=== PATIENT | male | born 1950 | race Caucasian/White ===

== ENCOUNTER → 2021-02-28 | Outpatient (CLI) | payer OTHER ==
--- NOTE | 2021-02-28 12:20 | RAD ---
EXAM: XR KNEE _3 VIEWS_LT 02/28/2021 10:54 AM CLINICAL INDICATION: Need COMPARISON: None TECHNIQUE: 3 views of the left knee FINDINGS: There is moderate medial compartment narrowing with mild subchondral sclerosis and small o steophytes. There is a 6 x 2 mm subchondral lucency in the medial femoral condyle. Mild lateral prashant rtment narrowing. Likely at least moderate patellofemoral compartment narrowing. There are small tric ompartment osteophytes. Chondrocalcinosis is seen in the medial and lateral compartment, and in the g astrocnemius origin. Small joint effusion. There are vascular calcifications. IMPRESSION: 1. Tricompartmental degenerative joint disease, greatest in the medial and patellofemoral compartment s where it is moderate. 6 x 2 mm subchondral lucency in the medial femoral condyle is age-indeterminate and could be related to a subchondral insufficiency fracture or degenerative remodeling of the articular surface. Electronically signed by: Elma Fowler MD (02/28/2021 12:17 PM) [id number]
== END ==
LOC: RAD 10:32
PROVIDERS: ATTEND Orthopaedic Surgery
DX: M17.12 Unilateral primary osteoarthritis, left knee (principal); M25.762 Osteophyte, left knee; M25.462 Effusion, left knee; M11.262 Other chondrocalcinosis, left knee
CPT/HCPCS: 73562